=== PATIENT | female | born 1960 | race Caucasian/White ===

== ENCOUNTER 2025-05-21 01:17 | Outpatient (CLI) | payer OTHER, SELFPAY ==
--- NOTE | 2025-05-21 07:00 | DI.RAD_ITS ---
Exam(s) XR CHEST 2V PA LATERAL EXAM: XR CHEST 2V PA LATERAL CLINICAL HISTORY: frequent cough,r05.9 TECHNIQUE: 2D digital imaging was performed. Two views. COMPARISON: No exams were available for comparison FINDINGS: HEART: Normal size. Aorta: Not dilated. PULMONARY VASCULATURE: Normal. MEDIASTINUM: Unremarkable. LUNGS: The lungs are hyperinflated but clear. No infiltrate is identified. PLEURAL SPACE: No pleural effusion or pneumothorax. BONE:Unremarkable for age. SOFT TISSUES: Unremarkable. IMPRESSION: Hyperinflation which could indicate COPD. No evidence of pneumonia. DATA REPOSITORY: RADIATION DOSE DELIVERED:
== END 2025-05-21 01:37 ==
LOC: DI 01:18
PROVIDERS: PCP Nurse Practitioner Family; Visit Provider Nurse Practitioner Family
DX: R05.9 Cough, unspecified (principal)
CPT/HCPCS: 71046

== ENCOUNTER 2025-05-21 10:56 | Outpatient (CLI) | payer OTHER, SELFPAY ==
[2025-05-21 10:08] LABS: Hemoglobin A1C 5.4 % (<5.7)
[2025-05-21 10:49] LABS: ALT 37 U/L (14-59); AST 26 U/L (15-37); Albumin 3.6 g/dL (3.4-5.0); Alkaline Phosphatase 76 U/L (46-116); Anion Gap 5.3 mmol/L (3-11); BUN 22 mg/dL (7-18); Bilirubin, Total 0.4 mg/dL (0.2-1.0); CO2 30.7 mmol/L (21.0-32.0); Calcium 9.0 mg/dL (8.5-10.1); Calculated LDL 129 mg/dL (<100); Chloride 104 mmol/L (98-107); Cholesterol 235 mg/dL (<200); Estimated GFR 82.74 (mL/min/1.73m2); Glucose 94 mg/dL (74-106); HDL Cholesterol 79 mg/dL (>or=50); Potassium 4.2 mmol/L (3.5-5.1); Sodium 140 mmol/L (136-145); TSH (W/Ref FT4) 0.83 uIU/mL (0.36-3.74); Total Protein 7.2 g/dL (6.4-8.2); Triglyceride 138 mg/dL (<150)
== END 2025-05-21 10:57 | disposition home or self-care (01) ==
LOC: LBO 10:56
PROVIDERS: PCP Nurse Practitioner Family; Visit Provider Nurse Practitioner Family
DX: Z13.1 Encounter for screening for diabetes mellitus (principal); R03.0 Elevated blood-pressure reading, without diagnosis of hypertension; Z13.220 Encounter for screening for lipoid disorders; E03.9 Hypothyroidism, unspecified
CPT/HCPCS: 36415; 80053; 80061; 83036; 84443

== ENCOUNTER 2025-05-28 03:16 | Outpatient (CLI) | payer OTHER, SELFPAY ==
[2025-05-28] MEDS: Levalbuterol HFA 15 GM INH 4 PUFF IH (11:35)
[2025-05-28] MEDS: Inhaler, Assist Device 1 EACH MC (11:35)
--- NOTE | 2025-05-28 14:19 | W.PFT ---
Date of service: 05/28/25 Time of Service: 10:02 Pulmonary Function Test Result Indications: Dyspnea with exertion Impression 1. Good patient effort was noted. ATS standards for reproducibility were met. 2. Spirometry showed severe obstructive lung disease with an FEV1 of 43% (0.87 L) 3. Following the administration of a bronchodilator there was not a significant response 4. TLC and RV were elevated, consistent with air trapping. 5. DLCO was 56%, consistent with a moderate defect in alveolar gas exchange
== END 2025-05-28 03:17 | disposition home or self-care (01) ==
LOC: RT 03:16
PROVIDERS: PCP Nurse Practitioner Family; Visit Provider Nurse Practitioner Family
DX: R06.09 Other forms of dyspnea (principal); J44.9 Chronic obstructive pulmonary disease, unspecified
CPT/HCPCS: 94060; 94726; 94729

== ENCOUNTER 2025-06-05 00:49 | Outpatient (CLI) | payer OTHER, SELFPAY ==
--- NOTE | 2025-06-05 05:43 | DI.MAMMO_ITS ---
Exam(s) MAMMO SCREENING EXAM: MAMMO SCREENING CLINICAL HISTORY: screening,z12.39, baseline. TECHNIQUE: Bilateral full field digital CC and MLO mammographic images were obtained with 3D tomosynthesis and utilizing computer aided detection (CAD). COMPARISON: None. This is a baseline screening mammogram on this 64-year-old FINDINGS: There are no CAD designations. No significant left breast findings. There is a skin mole in the medial right breast noted. There are no spiculated masses nor malignant appearing microcalcification groups. There is no significant architectural distortion nor skin thickening-retraction. IMPRESSION: No radiographic evidence of malignancy. BI-RADS Category 2 - Benign Findings Breast Density - Category B - There are scattered areas of fibroglandular density. Breast density Category C or D implies that the patient has dense breast tissue. Dense breast tissue can make it harder to find cancer on a mammogram. Dense breast tissue is also associated with an increased risk of breast cancer. This information about the result of the mammogram report was provided to the patient to raise their awareness. Use this report when you speak with the patient about their risks for breast cancer, which includes their family history. At that time, you may recommend additional screening tests (Ultrasound or MRI) as these tests may add significant information. A negative radiographic report should not delay biopsy if a dominant or clinically suspicious mass is present. Up to ten percent of cancers are not identified on mammography. A negative report may reinforce clinical impression. Adenosis and dense breasts may obscure an underlying neoplasm. False positive reports average 6 to 10%. Patient will receive a letter notifying them of these results.
== END 2025-06-05 01:09 ==
LOC: DI 00:49
PROVIDERS: PCP Nurse Practitioner Family; Visit Provider Nurse Practitioner Family
DX: Z12.31 Encounter for screening mammogram for malignant neoplasm of breast (principal); R92.323 Mammographic fibroglandular density, bilateral breasts
CPT/HCPCS: 77063; 77067

== ENCOUNTER 2025-06-16 16:44 | Outpatient (REF) | payer OTHER, SELFPAY ==
[2025-06-16 13:33] LABS: Abs Immature Grans 0.02 10^3/uL (0.0-0.06); HCT 46.3 % (36.0-46.0); HGB 15.6 g/dL (11.2-15.7); Immature Grans % 0.3 %; MCH 32.8 pg (27.0-33.0); MCHC 33.7 % (32.0-36.0); MCV 98 fL (80-95); MPV 9.6 fL (8.0-11.0); Platelet Count 343 10^3/uL (130-400); RBC 4.75 10^6/uL (3.93-5.22); RDW 13.2 % (11.7-14.6); RDW-SD 47.7 fL; WBC 7.92 10^3/uL (4.4-10.8)
== END 2025-06-16 16:45 | disposition home or self-care (01) ==
LOC: LBN 16:44
PROVIDERS: PCP Nurse Practitioner Family; Visit Provider Internal Medicine Pulmonary Disease
DX: J44.9 Chronic obstructive pulmonary disease, unspecified (principal)
CPT/HCPCS: 85025

== ENCOUNTER 2025-06-18 10:42 | Outpatient (REF) | payer OTHER, SELFPAY ==
--- NOTE | 2025-06-18 09:40 | PAPFT_PTH ---
PATIENT: Ranjana Nelson LOC: [facility] U#:[id number] AGE/SX: 64/F ROOM: RE06/18/[address]: Aliza Matos DO : 1960 BED: DIS: 06/18/2025 SPEC #: [id number] RECD: 06/18/25 12:56 STATUS: LUIGI REQ #: [id number] SADE: 06/18/25 09:[address]: Aliza Matos DEPT: [facility] Cytology RECD BY: Ragini Bueno ENTERED: 06/18/25 12:56 SP TYPE: PAPFT OT DR: Ry King, [facility] Tissues: 1 - CX/ENDOCX FOR PAP SMEARS Procedures: PAP THIN PREP/[facility] Screening HPV DNA PROBE Comments: [id number] (HPV 16 & 18/45)
== END 2025-06-18 10:43 | disposition home or self-care (01) ==
LOC: LBN 10:42
PROVIDERS: PCP Nurse Practitioner Family; Visit Provider Obstetrics & Gynecology
DX: Z11.51 Encounter for screening for human papillomavirus (HPV) (principal); Z01.419 Encounter for gynecological examination (general) (routine) without abnormal findings; N76.0 Acute vaginitis
CPT/HCPCS: 88142; 87624